=== PATIENT | female | born 1945 | race Caucasian/White ===

== ENCOUNTER 2019-03-19 05:35 | Day surgery (SDC) | payer MEDICARE ==
[2019-03-16 14:53] LABS: BASOPHILS % (AUTO) 0.5 % (0-1); EOSINOPHILS # (AUTO) 0.2 X10'3 (0-0.9); EOSINOPHILS % (AUTO) 2.3 % (0-6); LYMPHOCYTES # (AUTO) 1.7 X10'3 (1.1-4.8); LYMPHOCYTES % (AUTO) 26.1 % (21-51); MEAN CORPUSCULAR HEMOGLOBIN 28.6 PG (27.0-31.0); MEAN CORPUSCULAR HGB CONC 34.2 g/dL (33.0-36.5); MEAN CORPUSCULAR VOLUME 83.5 FL (78-98); MEAN PLATELET VOLUME 7.1 FL (7.4-10.4); MONOCYTES # (AUTO) 0.6 X10'3 (0-0.9); MONOCYTES % (AUTO) 9.3 % (2-12); NEUTROPHILS % (AUTO) 61.8 % (42-75); PRE OP HEMATOCRIT 39.3 % (35.0-45.0); PRE OP HEMOGLOBIN 13.5 g/dL (12.0-16.0); PRE OP PLATELET COUNT 159 X10'3 (140-440); RED BLOOD COUNT 4.71 X10'6 (4.20-5.60); RED CELL DISTRIBUTION WIDTH 13.8 % (11.5-14.5)
[2019-03-16 15:00] LABS: ALBUMIN 3.8 G/DL (3.4-5.0); ALKALINE PHOSPHATASE 66 IU/L (46-116); BLOOD UREA NITROGEN 25 MG/DL (7-18); BUN/CREATININE RATIO 22.5 (6.6-38.0); CALCIUM 9.4 MG/DL (8.5-10.1); CHLORIDE 104 MMOL/L (99-107); CREATININE 1.11 MG/DL (0.40-0.90); PRE OP ALT 28 U/L (30-65); PRE OP ANION GAP 7 (8-16); PRE OP AST 14 U/L (10-37); PRE OP BILIRUB, TOTAL 0.5 MG/DL (0.0-1.0); PRE OP GLUCOSE 97 MG/DL (70-104); PRE OP SODIUM 143 MMOL/L (135-145); TOTAL CARBON DIOXIDE 32.3 MMOL/L (24-32); TOTAL PROTEIN 7.7 G/DL (6.4-8.2); eGFR 48 ML/MIN
[~2019-03-19] VITALS: Ht 165.1 cm; Wt 68.0 kg
[~2019-03-19 05:35] MED LIST: ASPI-974 PO; ATEN50TA PO; DOCUMENT DATE & TIME OF BETA-BLOCKER PO ONE; GLYB5TAB7 PO; LISI1TAB29 PO; MULT-933 PO; NEURIVA PO; SERT50TA PO; SIMV40TA PO; famotidine 20mg tablet PO ONE; ringers solution, lacted 1,000 ML IV SCH
[2019-03-19] MEDS ORDERED: LIDOcaine 1% (10mg/ml) 2ml vial ONE (05:58)
[2019-03-19 06:00] VITALS: BP 132/79
[2019-03-19 06:31] LABS: ISTAT CREATININE 1.3 mg/dL (0.6-1.1); ISTAT HGB 13.3 g/dl (12.0-16.0); ISTAT IONIZED CALCIUM 1.24 mmol/L (1.03-1.32); ISTAT K 3.1 mmol/L (3.5-5.1); POC BUN/CREATININE RATIO 16.9 (6.6-38.0)
[2019-03-19] MEDS ORDERED: cefazolin/dext.iso 2gm/100ml 100 ML IV ONE (06:45)
[2019-03-19] MEDS ORDERED: vancomycin/NS 1 GM ADD-VANTAGE 250 ML IV ONE (06:45)
[2019-03-19 06:52] LABS: PRE OP INR 1.1 INR; PRE OP PROTIME 11.1 SECONDS (9.0-12.0)
--- NOTE | 2019-03-19 08:00 | NUR ---
(0715) ANESTHESIA: DR ZHANG AT BEDSIDE, IRREGULAR HR NOTED, HEART MONITOR WITH A-FIB PRESENT INTERMITTENTLY. DR MARCANO NOTIFED BY ANESTHESIA, SURGERY CANCELED. DR MARCANO SPOKE WITH PT AND FAMILY, STATED HE WOULD CONTACT DR SCHREIBER TODAY FOR A CONSULT. VANCOMYCIN INFUSION STOPPED WITH PARTIAL DOSE INFUSED 75MLS. (0800) IV DC'D WITH CANNULA INTACT AND DSG APPLIED. PT INSTRUCTED TO RESUME HOME MEDS UNTIL CONSULT WITH DR SCHREIBER AND SURGERY RESCHEDULED. DC'D HOME IN STABLE CONDITION WITH ALL BELONGINGS, AND DAUGHTER PRESENT, AMBULATORY TO PRIVATE VEHICLE.
[2019-03-27] MEDS ORDERED: ASPI-1265 PO (16:45)
== END 2019-03-19 08:00 | disposition home or self-care (01) ==
LOC: PAS 05:35
PROVIDERS: ATTEND Orthopaedic Surgery
DX: S42.291A Other displaced fracture of upper end of right humerus, initial encounter for closed fracture (principal); Z53.8 Procedure and treatment not carried out for other reasons; S46.011A Strain of muscle(s) and tendon(s) of the rotator cuff of right shoulder, initial encounter; I10 Essential (primary) hypertension; E11.9 Type 2 diabetes mellitus without complications; Z88.2 Allergy status to sulfonamides; Z79.84 Long term (current) use of oral hypoglycemic drugs; Z79.82 Long term (current) use of aspirin; Z79.899 Other long term (current) drug therapy; X58.XXXA Exposure to other specified factors, initial encounter; Y93.89 Activity, other specified; Y92.89 Other specified places as the place of occurrence of the external cause; Y99.8 Other external cause status
CPT/HCPCS: 36415; 80047; 80053; 85025; 85610; 85730; 93005; J2001; J3370; J7120

== ENCOUNTER 2019-03-30 13:32 | Inpatient (IN) | payer MEDICARE, OTHER ==
[2019-03-27 15:50] LABS: BASOPHILS # (AUTO) 0.1 X10'3 (0-0.2); BASOPHILS % (AUTO) 0.8 % (0-1); EOSINOPHILS # (AUTO) 0.2 X10'3 (0-0.9); EOSINOPHILS % (AUTO) 3.5 % (0-6); LYMPHOCYTES # (AUTO) 1.6 X10'3 (1.1-4.8); LYMPHOCYTES % (AUTO) 26.6 % (21-51); MEAN CORPUSCULAR HEMOGLOBIN 28.8 PG (27.0-31.0); MEAN CORPUSCULAR HGB CONC 34.6 g/dL (33.0-36.5); MEAN CORPUSCULAR VOLUME 83.2 FL (78-98); MEAN PLATELET VOLUME 6.6 FL (7.4-10.4); MONOCYTES # (AUTO) 0.5 X10'3 (0-0.9); MONOCYTES % (AUTO) 8.9 % (2-12); NEUTROPHILS # (AUTO) 3.7 X10'3 (1.8-7.7); NEUTROPHILS % (AUTO) 60.2 % (42-75); PRE OP HEMOGLOBIN 13.5 g/dL (12.0-16.0); PRE OP PLATELET COUNT 157 X10'3 (140-440); RED BLOOD COUNT 4.68 X10'6 (4.20-5.60); RED CELL DISTRIBUTION WIDTH 13.6 % (11.5-14.5)
[2019-03-27 16:00] LABS: ALBUMIN 3.9 G/DL (3.4-5.0); ALKALINE PHOSPHATASE 67 IU/L (46-116); BLOOD UREA NITROGEN 20 MG/DL (7-18); BUN/CREATININE RATIO 18.2 (6.6-38.0); CALCIUM 9.5 MG/DL (8.5-10.1); CHLORIDE 105 MMOL/L (99-107); PRE OP ALT 32 U/L (30-65); PRE OP ANION GAP 4 (8-16); PRE OP AST 16 U/L (10-37); PRE OP BILIRUB, TOTAL 0.4 MG/DL (0.0-1.0); PRE OP GLUCOSE 115 MG/DL (70-104); PRE OP SODIUM 142 MMOL/L (135-145); TOTAL CARBON DIOXIDE 33.2 MMOL/L (24-32); TOTAL PROTEIN 7.7 G/DL (6.4-8.2); eGFR 48 ML/MIN
[2019-03-27 16:03] LABS: PRE OP POTASSIUM 3.2 MMOL/L (3.4-5.1)
[2019-03-30] VITALS (15 sets, daily range): BP systolic 113–155; BP diastolic 62–89
[~2019-03-30] VITALS: Ht 165.1 cm; Wt 68.0 kg
[~2019-03-30 13:32] MED LIST changes: +ASPI-1265 PO; -ASPI-974 PO; -DOCUMENT DATE & TIME OF BETA-BLOCKER PO ONE; +ROPIVAcaine 0.5% (5mg/ml) 30ml vial ONE; -famotidine 20mg tablet PO ONE; -ringers solution, lacted 1,000 ML IV SCH
[2019-03-30] MEDS ORDERED: famotidine 20mg tablet PO ONE (14:30)
[2019-03-30] MEDS ORDERED: tranexamic acid inj. 700 MG in normal saline 100ml IV soln 100 ML IV ONE ×2 (14:30→15:30)
[2019-03-30] MEDS ORDERED: DOCUMENT DATE & TIME OF BETA-BLOCKER PO ONE (14:30)
[2019-03-30] MEDS ORDERED: vancomycin/NS 1 GM ADD-VANTAGE 250 ML IV ONE (14:30)
[2019-03-30] MEDS ORDERED: ringers solution, lacted 1,000 ML IV SCH ×2 (14:30→17:36)
[2019-03-30 14:31] LABS: ISTAT CREATININE 1.2 mg/dL (0.6-1.1); ISTAT HGB 13.3 g/dl (12.0-16.0); ISTAT IONIZED CALCIUM 1.16 mmol/L (1.03-1.32); ISTAT K 3.2 mmol/L (3.5-5.1); POC BUN/CREATININE RATIO 16.7 (6.6-38.0)
[2019-03-30] MEDS ORDERED: potassium Cl 20 mEq/100mL bag IV ONE (14:35)
[2019-03-30] MEDS: potassium Cl 10 mEq/100mL bag IV SCH ×2 (14:43→15:34)
[2019-03-30] MEDS ORDERED: cefazolin/dext.iso 2gm/100ml 100 ML IV ONE (14:45)
[2019-03-30] MEDS ORDERED: fentaNYL/PF 50MCG/1 ML 2ML syringe ONE (16:13)
[2019-03-30] MEDS ORDERED: MIDAZolam 5mg/5ml vial ONE (16:13)
[2019-03-30] MEDS ORDERED: sevoflurane 250ml liquid IH ONE (16:23)
[2019-03-30] MEDS ORDERED: dexamethasone sod phosphate 10mg/ml inj ONE (16:23)
[2019-03-30] MEDS ORDERED: LIDOcaine 1%/PF 5ML 10 MG/ML VIAL ONE (16:23)
[2019-03-30] MEDS ORDERED: proCHLORperazine 10 MG/2 ml inj IV PRN (17:40)
[2019-03-30] MEDS ORDERED: morphine 4 MG/ML inj SYRINge IV PRN ×2 (17:40)
[2019-03-30] MEDS ORDERED: ondansetron/PF 4mg/2ml inj IV PRN ×2 (17:40→18:35)
[2019-03-30] MEDS ORDERED: meperidine/PF 25mg/ml syringe IV PRN ×3 (17:40)
[2019-03-30] MEDS ORDERED: ROPIVAcaine 0.2%/PF PAIN PUMP 400 ML IJ SCH (18:10)
[2019-03-30] MEDS ORDERED: ondansetron/PF 4mg/2ml inj ONE (18:30)
[2019-03-30] MEDS ORDERED: propofol inj 20 ML IV ONE (18:30)
[2019-03-30] MEDS ORDERED: ketorolac trometh. 30mg/ml inj. ONE (18:31)
[2019-03-30] MEDS ORDERED: bisacodyl 10mg suppository rectal RC PRN (18:35)
[2019-03-30] MEDS ORDERED: magnesium hydroxide 30ml (MOM) UD suspension PO PRN (18:35)
[2019-03-30] MEDS ORDERED: acetaminophen 325mg tablet PO PRN (18:35)
[2019-03-30] MEDS ORDERED: HYDROmorphone inj. 0.5 MG/0.5 ML DISP.SYRIN IV PRN (18:35)
[2019-03-30] MEDS ORDERED: HYDROmorphone 1 mg/ml syringe IV PRN (18:35)
[2019-03-30] MEDS ORDERED: diphenhydrAMINE 25mg capsule PO PRN ×2 (18:35)
[2019-03-30] MEDS ORDERED: oxyCODONE IR 5mg (immed. release) tablet PO PRN ×2 (18:35)
--- NOTE | 2019-03-30 18:35 | NUR ---
ADMITTED TO PACU FROM OR ACCOMPANIED BY ANESTHESIA. INTIAL PHYSICAL ASSESSMENT DONE AND RECORDED. AWAKE AND RESPONSE ON ARRIVE YO PACU, REPORT RECEIVED FROM ANESTHESIA.
--- NOTE | 2019-03-30 19:30 | NUR ---
PACU DISCHARGE CRITERIA MET, REPORT GIVEN TO FLOOR. DENIES PAIN OR DISCOMFORT, TRANSFERRED TO ROOM IN STABLE GOOD CONDITION.
--- NOTE | 2019-03-30 19:35 | NUR ---
PT TRANSFERRED FROM OR, HER FAMILY MEMBERS IN HER ROOM. SHE HAS BEEN ORIENTED TO THE ROOM. VSS. DENIES PAIN. RECEIVED REPORT FROM KEVIN BERRY PRIOR TO PT'S ARRIVAL.
[2019-03-30] MEDS: acetaminophen 325mg tablet PO SCH (20:11)
[2019-03-30] MEDS: potassium cl 20mEq in 1/2 NS 1,000 ML IV SCH (20:34)
[2019-03-30] MEDS ORDERED: atenolol 50mg tablet PO SCH (21:00)
[2019-03-30] MEDS ORDERED: HYDROchlorothiazide 25mg tablet PO SCH (21:00)
[2019-03-30] MEDS ORDERED: aspirin 81mg tab.chew PO SCH (21:00)
[2019-03-30] MEDS ORDERED: lisinopril 20mg tablet PO SCH (21:00)
[2019-03-30] MEDS ORDERED: sertraline 50mg tablet PO SCH (21:00)
[2019-03-30] MEDS ORDERED: glimepiride 1 MG tablet PO SCH (21:00)
[2019-03-30] MEDS ORDERED: sennosides 8.6mg tablet PO SCH (21:00)
[2019-03-30] MEDS ORDERED: multivitamins, therapeutics tablet PO SCH (21:00)
[2019-03-30] MEDS ORDERED: NEURIVA PO SCH (21:00)
[2019-03-30] MEDS ORDERED: atorvastatin 20mg tablet PO SCH (21:00)
[2019-03-31] MEDS: acetaminophen 325mg tablet PO SCH ×2 (01:10→09:43)
[2019-03-31] MEDS: ceFAZolin 1GM/D5W- ADD-VANTAGE 50 ML IV SCH ×2 (01:10→10:18)
[2019-03-31 01:26] VITALS: BP 128/73
[2019-03-31] MEDS: potassium cl 20mEq in 1/2 NS 1,000 ML IV SCH (02:32)
[2019-03-31 06:14] LABS: BASOPHILS % (AUTO) 0.2 % (0-1); EOSINOPHILS % (AUTO) 0 % (0-6); HEMATOCRIT 34.1 % (35.0-45.0); LYMPHOCYTES # (AUTO) 0.8 X10'3 (1.1-4.8); LYMPHOCYTES % (AUTO) 11.2 % (21-51); MEAN CORPUSCULAR HEMOGLOBIN 29.3 PG (27.0-31.0); MEAN CORPUSCULAR HGB CONC 35.2 g/dL (33.0-36.5); MEAN PLATELET VOLUME 7.2 FL (7.4-10.4); MONOCYTES # (AUTO) 0.4 X10'3 (0-0.9); MONOCYTES % (AUTO) 5.3 % (2-12); NEUTROPHILS # (AUTO) 5.8 X10'3 (1.8-7.7); NEUTROPHILS % (AUTO) 83.3 % (42-75); PLATELET COUNT 141 X10'3 (140-440); RED BLOOD COUNT 4.11 X10'6 (4.20-5.60)
[2019-03-31 06:19] LABS: ANION GAP 9 (8-16); CHLORIDE 105 MMOL/L (99-107); POTASSIUM 3.6 MMOL/L (3.5-5.1); SODIUM 140 MMOL/L (135-145); TOTAL CARBON DIOXIDE 26.4 MMOL/L (24-32)
--- NOTE | 2019-03-31 06:20 | NUR ---
Problems reprioritized. Patient report given, questions answered & plan of care reviewed with KEVIN Massey.
--- NOTE | 2019-03-31 06:33 | NUR ---
Problems reprioritized. Patient report given, questions answered & plan of care reviewed with KEVIN ARAGON.
[2019-03-31 06:45] LABS: HEMOGLOBIN A1C 5.7 % (4.5-6.2)
[2019-03-31] MEDS ORDERED: aspirin 325mg tablet PO SCH (08:30)
--- NOTE | 2019-03-31 11:44 | NUR ---
Received discharge orders from MIR Weinstein. IV dc'd from [facility] with cannula intact. Pressure and bandaid applied over insertion site. No redness/swelling at IV site. Lengthy teaching to pt and her regarding ON Q pump and when and how to discontinue it in approximately 3 days when empty. Reviewed discharge instructions with pt and . Medicare form signed by patient and discharge form. Pt discharged via w/c to private vehicle.
[2019-04-01] MEDS ORDERED: acetaminophen 325mg tablet PO PRN (18:35)
== END 2019-03-31 11:44 | disposition home health service (06) | DRG 493 ==
LOC: PAS IN 13:32 → EDSTATUS 16:30 → ORTHO 4S 19:29
PROVIDERS: ADMIT Orthopaedic Surgery; ATTEND Orthopaedic Surgery
PROC: 3E0T3BZ Introduction of Anesthetic Agent into Peripheral Nerves and Plexi, Percutaneous Approach (ICD-10-PCS; 2019-03-30)
PROC: 0PSF04Z Reposition Right Humeral Shaft with Internal Fixation Device, Open Approach (ICD-10-PCS; principal; 2019-03-30 16:23)
DX: S42.291A Other displaced fracture of upper end of right humerus, initial encounter for closed fracture (principal); D62 Acute posthemorrhagic anemia; M75.121 Complete rotator cuff tear or rupture of right shoulder, not specified as traumatic; I48.2 Chronic atrial fibrillation; W01.0XXA Fall on same level from slipping, tripping and stumbling without subsequent striking against object, initial encounter; E11.9 Type 2 diabetes mellitus without complications; I10 Essential (primary) hypertension; F32.9 Major depressive disorder, single episode, unspecified; Y93.89 Activity, other specified; Y92.89 Other specified places as the place of occurrence of the external cause; Y99.8 Other external cause status; Z79.899 Other long term (current) drug therapy; Z79.82 Long term (current) use of aspirin
CPT/HCPCS: 36415; 73060; 76000; 80047; 80051; 80053; 82948; 83036; 85025; 97110; 97116; 97161; A4565; A4618; A6449; A7000; C1713; G0378; J0690; J1100; J1885; J2250; J2405; J2704; J2795; J3010; J3370; J3480; J7120

== ENCOUNTER 2021-09-26 14:02 | Day surgery (SDC) | payer MEDICARE ==
[~2021-09-26] VITALS: Ht 165.1 cm; Wt 69.9 kg
[~2021-09-26 14:02] MED LIST changes: -ASPI-1265 PO; +ATOR40TA PO; +DILT-35 PO; -LISI1TAB29 PO; +LISI20TA28 PO; -NEURIVA PO; -ROPIVAcaine 0.5% (5mg/ml) 30ml vial ONE; -SIMV40TA PO
[2021-09-26] MEDS ORDERED: calcium PO (14:33)
[2021-09-26] MEDS ORDERED: LISI1TAB53 PO (14:33)
[2021-09-26] MEDS ORDERED: SIMV40TA PO (14:33)
[2021-09-26] MEDS ORDERED: APIX5TAB3 PO (14:34)
[2021-09-26] MEDS ORDERED: SOTA80TA46 PO (14:35)
[2021-09-26 14:45] VITALS: BP 144/69
[2021-09-26] MEDS ORDERED: MIDAZolam 1mg/ml 10ml vial IV ONE (14:45)
[2021-09-26] MEDS ORDERED: fentaNYL/PF 50MCG/1 ML 2ML syringe IV ONE (14:45)
[2021-09-26] MEDS ORDERED: normal saline 1000ml 1,000 ML IV SCH (14:45)
--- NOTE | 2021-09-26 15:30 | NUR ---
EKG in [facility], faxed to Dr. Abernathy. Procedure cancelled.
== END 2021-09-26 15:31 | disposition home or self-care (01) ==
LOC: SSTAY O 14:02
PROVIDERS: ATTEND Internal Medicine Interventional Cardiology
DX: I48.91 Unspecified atrial fibrillation (principal); Z53.8 Procedure and treatment not carried out for other reasons; E11.9 Type 2 diabetes mellitus without complications; I50.9 Heart failure, unspecified; Z88.2 Allergy status to sulfonamides; Z79.899 Other long term (current) drug therapy
CPT/HCPCS: 93005